=== PATIENT | female | born 1955 | race Caucasian/White ===

== ENCOUNTER → 2019-02-06 | Outpatient (CLI) | payer MEDICARE ==
[2019-02-06 15:50] LABS: ABG BASE EXCESS 0.8 MMOL/L (-2.5-2.5); ABG OXYGEN SATURATION 98 % (94-100); ABG PCO2 39 MMHG (35-45); ABG PH 7.42 (7.37-7.43); ABG PO2 92 MMHG (79-93); ABG TCO2 26.3 MMOL/L (21.0-31.0); ALLENS TEST POSITIVE; INSPIRED O2 2L; VENTILATOR NO
[2019-02-06 15:51] LABS: PATIENT TEMP 96.9
== END ==
LOC: RT 14:31
PROVIDERS: ATTEND Nurse Practitioner Family
DX: R06.89 Other abnormalities of breathing (principal); J45.909 Unspecified asthma, uncomplicated; J44.9 Chronic obstructive pulmonary disease, unspecified; R05 Cough; J98.4 Other disorders of lung; R06.00 Dyspnea, unspecified; R09.02 Hypoxemia
CPT/HCPCS: 82805

== ENCOUNTER → 2019-03-06 | Outpatient (CLI) | payer MEDICARE, MEDICAID ==
[~2019-03-06] MED LIST: HOLD METFORMIN - RECEIVED CONTRAST 20 ML VIAL IV SCH; IOHEXOL 350 MG/ML 100 ML (OMNIPAQUE 350) VIAL IV ONE
[2019-03-06 13:46] LABS: BUN/CREATININE RATIO 13; CREATININE SERUM 0.71 MG/DL (0.60-1.30); GFR ESTIMATED > 60
--- NOTE | 2019-03-06 15:53 | Diagnostic Imaging Report ---
PROCEDURE: CT chest with contrast only. TECHNIQUE: Multiple contiguous axial images were obtained through the chest after administration of intravenous contrast. Auto Exposure Controls were utilized during the CT exam to meet ALARA standards for radiation dose reduction. INDICATION: Asthma, bronchitis. COMPARISON: There are no prior studies available for comparison. FINDINGS: The heart size is within normal limits. The aorta is not abnormally dilated. There is no sign of a dissection. The pulmonary arteries were not well opacified, and consequently evaluation for a pulmonary embolus is limited. There is no definite defect to suggest a pulmonary embolus. There is no mediastinal or hilar adenopathy. The thyroid gland is generally unremarkable. There is hyperexpansion of both lungs, and there are emphysematous changes throughout each lung, particularly the lung apices. There is no parenchymal lung mass identified. There is no sign of failure, pneumonia, or a pleural effusion to indicate an acute abnormality. There is no obvious breast mass. According to our records, the patient has not had a mammogram. If the patient has had a recent mammogram (within the last year) elsewhere, then no further imaging would be necessary. Otherwise, mammography would be recommended for further evaluation. The sections through the upper abdomen fail to show any sign of an acute abnormality. The bone windows are unremarkable for a fracture or for a destructive lesion. IMPRESSION: 1. There is no evidence for an acute cardiopulmonary abnormality. The pulmonary arteries were not fully opacified, and consequently the evaluation for a pulmonary embolus is limited. There is no obvious defect to suggest a pulmonary embolus, however. 2. There are emphysematous changes involving both lungs. 3. There is no obvious breast mass. Recommendations as above. Dictated by: Dictated on workstation # [id number]
== END ==
LOC: RAD 13:15
PROVIDERS: ATTEND Nurse Practitioner Family
DX: J43.9 Emphysema, unspecified (principal); J45.909 Unspecified asthma, uncomplicated; J42 Unspecified chronic bronchitis; J98.4 Other disorders of lung
CPT/HCPCS: 36415; 71260; 82565; 84520

== ENCOUNTER → 2019-03-17 | Outpatient (CLI) | payer MEDICARE, MEDICAID ==
[~2019-03-17] MED LIST changes: -HOLD METFORMIN - RECEIVED CONTRAST 20 ML VIAL IV SCH; -IOHEXOL 350 MG/ML 100 ML (OMNIPAQUE 350) VIAL IV ONE; +RT-ALBUTEROL SULF 2.5 MG/3 ML PRE-MIX VIAL INH ONE
== END ==
LOC: RT 13:28
PROVIDERS: ATTEND Nurse Practitioner Family
DX: J44.9 Chronic obstructive pulmonary disease, unspecified (principal); R06.89 Other abnormalities of breathing; R05 Cough; J98.4 Other disorders of lung; R06.00 Dyspnea, unspecified; R09.02 Hypoxemia
CPT/HCPCS: 94060; 94726; 94729

== ENCOUNTER → 2020-04-12 | Outpatient (CLI) | payer MEDICARE, MEDICAID ==
--- NOTE | 2020-04-12 16:47 | Diagnostic Imaging Report ---
CT CHEST SCREENING WO TECHNIQUE: Low-dose unenhanced CT of the chest was performed according to the screening protocol. Coronal MIP and sagittal MPR reformats are created. Automatic exposure controls were utilized to keep dose as low as reasonably achievable. INDICATION: 64-year-old current smoker with [id number] history of smoking. COMPARISON: CT chest of 03/06/2019. FINDINGS: Pulmonary findings: There are some retained secretions within the trachea. Severe centrilobular emphysema is unchanged. No pulmonary mass or consolidation. Stable 4 mm right middle lobe pulmonary nodule (image 155, series 2). No new pulmonary nodule that would suggest clinically active lung cancer. Extrapulmonary findings: No axillary or intrathoracic lymphadenopathy. Heart is normal in size. Normal caliber thoracic aorta. There are a few punctate scattered coronary artery calcifications. No concerning focal osseous lesions. IMPRESSION: 1. Baseline screening CT is negative for features of clinically active lung cancer. 2. Unchanged severe emphysema. Lung-RADS category: 2 - Benign appearance or behavior Recommendations: Continued annual screening with low-dose CT in 12 months. Dictated by: Dictated on workstation # [id number]
== END ==
LOC: RAD 13:02
PROVIDERS: ATTEND Nurse Practitioner Family
DX: Z12.2 Encounter for screening for malignant neoplasm of respiratory organs (principal); J44.9 Chronic obstructive pulmonary disease, unspecified; Z87.891 Personal history of nicotine dependence